=== PATIENT | female | born 1985 | race Caucasian/White ===

== ENCOUNTER 2019-12-10 08:43 | Emergency (ER) | payer MEDICAID, OTHER ==
[~2019-12-10] VITALS: Ht 162.6 cm; Wt 45.4 kg
[2019-12-10 09:09] VITALS: BP 130/83
== END 2019-12-10 09:40 | disposition home or self-care (01) ==
LOC: ER 08:43
DX: F41.9 Anxiety disorder, unspecified (principal); M94.0 Chondrocostal junction syndrome [Tietze]
CPT/HCPCS: 93005